=== PATIENT | female | born 1990 | race African-American/Black ===

== ENCOUNTER 2021-03-28 17:16 | Emergency (ER) | payer SELFPAY ==
[2021-03-28] MEDS ORDERED: Tetracaine 0.5% PF 4 ML BOT ONE (18:52)
[2021-03-28] MEDS ORDERED: Fluorescein Opthalmic Strip ONE (18:52)
== END 2021-03-28 21:07 | disposition home or self-care (01) ==
LOC: CSHERS 17:16
DX: T15.02XA Foreign body in cornea, left eye, initial encounter (principal)
CPT/HCPCS: 99283